=== PATIENT | female | born 1940 | race Caucasian/White ===

== ENCOUNTER 2017-12-23 15:16 | Emergency (ER) | payer MEDICARE ==
[2017-12-23 15:24] VITALS: BP 140/63
--- NOTE | 2017-12-23 15:58 | ER Document Report ---
ED Medical Screen (RME) - General Chief Complaint: Back Pain Stated Complaint: LOWER LEFT BACK PAIN Time Seen by Provider: 12/23/17 15:55 Mode of Arrival: Ambulatory Information source: Patient Notes: 77-year-old female presented to ED for complaint of left upper back pain that is getting progressively worse. She states she does have a cough and the cough makes the pain worse. She states today she started coughing up phlegm. She is tender to the upper back. She has a history of blood pressure stroke breast cancer with chemo and radiation bilaterally and bladder cancer. Lungs are clear to auscultation at this time. I have greeted and performed a rapid initial assessment of this patient. A comprehensive ED assessment and evaluation of the patient, analysis of test results and completion of medical decision making process will be conducted by an additional ED providers. TRAVEL OUTSIDE OF THE [place] IN LAST 30 DAYS: No - Related Data Allergies/Adverse Reactions: No Known Allergies Allergy (Verified 12/23/17 15:18) Past Medical History - Past Medical History Cardiac Medical History: Reports: Hx Hypertension Renal/ Medical History: Denies: Hx Peritoneal Dialysis Musculoskeltal Medical History: Reports Hx Arthritis Past Surgical History: Reports: Hx Breast Surgery - b/l lumpectomy cancer - Immunizations Hx Diphtheria, Pertussis, Tetanus Vaccination: No History of Influenza Vaccine for 07/2017 - 12/2017 Season: Yes Physical Exam - Vital signs Vitals: Temp Pulse Resp BP Pulse Ox 97.8 F 77 16 140/63 H 96 12/23/17 15:21 12/23/17 15:21 12/23/17 15:21 12/23/17 15:21 12/23/17 15:21 Course - Vital Signs Vital signs: Temp Pulse Resp BP Pulse Ox 97.8 F 77 16 140/63 H 96 12/23/17 15:21 12/23/17 15:21 12/23/17 15:21 12/23/17 15:21 12/23/17 15:21
[2017-12-23 16:46] LABS: APPEARANCE,URINE CLEAR; BILIRUBIN,URINE NEGATIVE (NEGATIVE); COLOR,URINE YELLOW; GLUCOSE, URINE NEGATIVE (NEGATIVE); KETONES,URINE NEGATIVE (NEGATIVE); LEUKOCYTE ESTERASE,URINE NEGATIVE (NEGATIVE); NITRITE,URINE NEGATIVE (NEGATIVE); PROTEIN,URINE NEGATIVE (NEGATIVE); URINE SPECIFIC GRAVITY 1.015; UROBILINOGEN,URINE NEGATIVE mg/dL (<2.0)
--- NOTE | 2017-12-23 16:50 | RADIOLOGY REPORT (SQ) ---
EXAM DESCRIPTION: CHEST PA/LAT COMPLETED DATE/TIME: 12/23/2017 4:35 pm REASON FOR STUDY: back pain left upper COMPARISON: None. EXAM PARAMETERS: NUMBER OF VIEWS: two views TECHNIQUE: Digital Frontal and Lateral radiographic views of the chest acquired. RADIATION DOSE: NA LIMITATIONS: none FINDINGS: LUNGS AND PLEURA: No opacities, masses or pneumothorax. No pleural effusion. MEDIASTINUM AND HILAR STRUCTURES: No hilar enlargement. Moderate size retrocardiac hiatal hernia. HEART AND VASCULAR STRUCTURES: Heart normal size. No evidence for failure. BONES: No acute findings. Bones are osteopenic. No thoracic compression deformity. HARDWARE: Surgical clips right lateral breast and axilla OTHER: No other significant finding. IMPRESSION: No acute infiltrates. Old prior right breast and axilla surgery. Moderate size retrocardiac hiatal hernia TECHNICAL DOCUMENTATION: JOB ID: [id number] [employer]- All Rights Reserved Reading location - IP/workstation name: [email or web address]
[2017-12-23 17:13] LABS: ABSOLUTE BASOPHILS # (AUTO) 0.1 10^3/uL (0.0-0.2); ABSOLUTE EOSINOPHILS # (AUTO) 0.6 10^3/uL (0.0-0.6); ABSOLUTE LYMPHOCYTES (AUTO) 1.9 10^3/uL (0.5-4.7); ABSOLUTE MONOCYTES (AUTO) 1.1 10^3/uL (0.1-1.4); ABSOLUTE NEUT (AUTO) 8.9 10^3/uL (1.7-8.2); EOSINOPHILS % (AUTO) 4.5 % (0-6); HEMATOCRIT 41.5 % (36.0-47.0); HEMOGLOBIN 13.8 g/dL (12.0-15.5); LYMPHOCYTES % (AUTO) 15.1 % (13-45); MEAN CORPUSCULAR HEMOGLOBIN 28.5 pg (27.0-33.4); MEAN CORPUSCULAR HGB CONC 33.2 g/dL (32.0-36.0); MEAN CORPUSCULAR VOLUME 86 fl (80-97); MONOCYTES % (AUTO) 9.1 % (3-13); PLATELET COUNT 376 10^3/uL (150-450); RED BLOOD COUNT 4.84 10^6/uL (3.72-5.28); RED CELL DISTRIBUTION WIDTH 14.8 % (11.5-14.0); SEGMENTED NEUTROPHILS % (AUTO) 70.3 % (42-78); TOTAL CELLS COUNTED % (AUTO) 100 %; WHITE BLOOD COUNT 12.6 10^3/uL (4.0-10.5)
[2017-12-23 17:34] LABS: ALANINE AMINOTRANSFERASE 34 U/L (9-52); ALBUMIN 4.6 g/dL (3.5-5.0); ALKALINE PHOSPHATASE 80 U/L (38-126); ANION GAP 11 (5-19); ASPARTATE AMINO TRANSFERASE 34 U/L (14-36); BILIRUBIN,DIRECT 0.4 mg/dL (0.0-0.4); BILIRUBIN,TOTAL 0.4 mg/dL (0.2-1.3); BLOOD UREA NITROGEN 19 mg/dL (7-20); CALCIUM 9.9 mg/dL (8.4-10.2); CARBON DIOXIDE 28 mmol/L (22-30); CHLORIDE 101 mmol/L (98-107); GLUCOSE 87 mg/dL (75-110); POTASSIUM 4.1 mmol/L (3.6-5.0); TOTAL PROTEIN 7.9 g/dL (6.3-8.2)
--- NOTE | 2017-12-23 18:17 | ER Document Report ---
ED Neck/Back Problem - General Mode of Arrival: Ambulatory Information source: Patient TRAVEL OUTSIDE OF THE [place] IN LAST 30 DAYS: No <TJ GIL - Last Filed: 12/23/17 18:26> <LANI TAYLOR - Last Filed: 12/23/17 23:19> - General Chief Complaint: Back Pain Stated Complaint: LOWER LEFT BACK PAIN Time Seen by Provider: 12/23/17 15:55 Notes: Patient is a 77-year-old female who presents to the emergency department today with complaints of a one-week duration of left-sided back pain. The pain is in her upper back and located near her shoulder blade. Patient denies any falls, trauma, or usage of blood thinners. (TJ GIL) - Related Data Allergies/Adverse Reactions: No Known Allergies Allergy (Verified 12/23/17 15:18) Past Medical History - General Information source: Patient - Social History Smoking Status: Former Smoker Cigarette use (# per day): No Frequency of alcohol use: None Drug Abuse: None Lives with: Family Family History: Reviewed & Not Pertinent Patient has suicidal ideation: No Patient has homicidal ideation: No - Past Medical History Cardiac Medical History: Reports: Hx Hypertension Renal/ Medical History: Denies: Hx Peritoneal Dialysis Musculoskeltal Medical History: Reports Hx Arthritis Past Surgical History: Reports: Hx Breast Surgery - b/l lumpectomy cancer - Immunizations Hx Diphtheria, Pertussis, Tetanus Vaccination: No <TJ GIL - Last Filed: 12/23/17 18:26> Review of Systems - Review of Systems Constitutional: No symptoms reported EENT: No symptoms reported Cardiovascular: No symptoms reported Respiratory: No symptoms reported Gastrointestinal: No symptoms reported Genitourinary: No symptoms reported Female Genitourinary: No symptoms reported Musculoskeletal: See HPI, Back pain Skin: No symptoms reported Hematologic/Lymphatic: No symptoms reported Neurological/Psychological: No symptoms reported -: Yes All other systems reviewed and negative <TJ GIL - Last Filed: 12/23/17 18:26> Physical Exam <TJ GIL - Last Filed: 12/23/17 18:26> <LANI TAYLOR - Last Filed: 12/23/17 23:19> - Vital signs Vitals: Temp Pulse Resp BP Pulse Ox 97.8 F 77 16 140/63 H 96 12/23/17 15:21 12/23/17 15:21 12/23/17 15:21 12/23/17 15:21 12/23/17 15:21 - Notes Notes: Physical Exam: General: Alert, appears well. HEENT: Normocephalic. Atraumatic. PERRL. Extraocular movements intact. Oropharynx clear. Neck: Supple. Non-tender. Respiratory: No respiratory distress. Clear and equal breath sounds bilaterally. Cardiovascular: 2/6 systolic murmur, Regular rate and rhythm. Abdominal: Normal Inspection. Non-tender. No distension. Normal Bowel Sounds. Back: Non-tender. No deformity or step off. Left sided parascapular tenderness with palpation. Extremities: Moves all four extremities. Upper extremities: Normal inspection. Normal ROM. Lower extremities: Normal inspection. No edema. Normal ROM. Neurological: Normal cognition. AAOx4. Normal speech. Psychological: Normal affect. Normal Mood. Skin: Warm. Dry. Normal color. No rashes. (TJ GIL) Course - Laboratory Result Diagrams: 12/23/17 16:26 12/23/17 16:26 <TJ GIL - Last Filed: 12/23/17 18:26> - Laboratory Result Diagrams: 12/23/17 16:26 12/23/17 16:26 <LANI TAYLOR - Last Filed: 12/23/17 23:19> - Re-evaluation Re-evalutation: 12/23/17 18:58 Patient has point tenderness to palpation along the border of left scapula suggestive muscular pain. The pain is reproducible with palpation. Her x-ray shows a hiatal hernia otherwise no other concerning findings. Her labs are within normal limits are nonsignificant. Will provide muscle relaxers instructed to use heating pad and stretching exercises. Discussed if symptoms were to continue she may consider at [facility] unit or PT. community clinic referral provide. Return precautions provided. (LANI TAYLOR) - Vital Signs Vital signs: Temp Pulse Resp BP Pulse Ox 97.8 F 77 16 140/63 H 96 12/23/17 15:21 12/23/17 15:21 12/23/17 15:21 12/23/17 15:21 12/23/17 15:21 - Laboratory Laboratory results interpreted by me: 12/23/17 16:26 WBC 12.6 H RDW 14.8 H Absolute Neutrophils 8.9 H Discharge <TJ GIL - Last Filed: 12/23/17 18:26> <LANI TAYLOR - Last Filed: 12/23/17 23:19> - Discharge Clinical Impression: Muscle strain Disposition: HOME, SELF-CARE Instructions: Muscle Strain ([facility]), Warm Packs ([facility]) Additional Instructions: Per discussion, please stretch using heating pad and ibuprofen as needed for pain. I feel he would benefit from a TENS unit as well which can be purchased at any drugstore. If symptoms continue you may be a candidate for physical therapy. If you begin to experience any chest pain or worsening of symptoms that radiate down your arm those could be signs of other diseases and you should be reevaluated by medical professional. Scribe Attestation: 12/23/17 23:19 I personally performed the services described documentation, reviewed and edited the documentation which was dictated to describe my presence, and it accurately records my words and actions. (LANI TAYLOR) Scribe Documentation - Scribe Written by Ivan:: Ivan Caldera, 12/23/2017 1831 acting as scribe for :: Liang <TJ GIL - Last Filed: 12/23/17 18:26>
== END 2017-12-23 19:10 | disposition home or self-care (01) ==
LOC: ER 15:16
DX: S39.012A Strain of muscle, fascia and tendon of lower back, initial encounter (principal); X58.XXXA Exposure to other specified factors, initial encounter; I10 Essential (primary) hypertension
CPT/HCPCS: 36415; 71046; 80053; 81001; 85025; 99283

== ENCOUNTER → 2018-03-17 | Outpatient (CLI) | payer MEDICARE ==
[2018-03-17 08:00] LABS: HEMATOCRIT 41.5 % (36.0-47.0); MEAN CORPUSCULAR HEMOGLOBIN 28.6 pg (27.0-33.4); MEAN CORPUSCULAR HGB CONC 33.6 g/dL (32.0-36.0); MEAN CORPUSCULAR VOLUME 85 fl (80-97); PLATELET COUNT 307 10^3/uL (150-450); RED BLOOD COUNT 4.88 10^6/uL (3.72-5.28); RED CELL DISTRIBUTION WIDTH 15.1 % (11.5-14.0); WHITE BLOOD COUNT 7.8 10^3/uL (4.0-10.5)
[2018-03-17 08:25] LABS: ALANINE AMINOTRANSFERASE 29 U/L (9-52); ALBUMIN 4.2 g/dL (3.5-5.0); ALKALINE PHOSPHATASE 61 U/L (38-126); ANION GAP 14 (5-19); ASPARTATE AMINO TRANSFERASE 39 U/L (14-36); BILIRUBIN,DIRECT 0.3 mg/dL (0.0-0.4); BILIRUBIN,TOTAL 0.5 mg/dL (0.2-1.3); BLOOD UREA NITROGEN 20 mg/dL (7-20); CALCIUM 9.8 mg/dL (8.4-10.2); CARBON DIOXIDE 28 mmol/L (22-30); CHLORIDE 105 mmol/L (98-107); CHOLESTEROL 164.69 mg/dL (0-200); GLUCOSE 103 mg/dL (75-110); POTASSIUM 4.3 mmol/L (3.6-5.0); SODIUM 147.2 mmol/L (137-145); TOTAL PROTEIN 7.4 g/dL (6.3-8.2); TRIGLYCERIDES 85 mg/dL (<150)
[2018-03-17 08:36] LABS: DIRECT LDL 92 mg/dL (<100)
== END ==
LOC: OD 07:15
PROVIDERS: ATTEND Nurse Practitioner
DX: E78.5 Hyperlipidemia, unspecified (principal); I10 Essential (primary) hypertension; Z79.899 Other long term (current) drug therapy; M85.89 Other specified disorders of bone density and structure, multiple sites
CPT/HCPCS: 36415; 80053; 80061; 82306; 82607; 83036; 84443; 85027

== ENCOUNTER → 2018-03-18 | Outpatient (CLI) | payer MEDICARE ==
--- NOTE | 2018-03-18 13:40 | RADIOLOGY REPORT (SQ) ---
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 TECHNIQUE: Grayscale ultrasound, Doppler velocity and spectra, and color Doppler images acquired of the extra-cranial carotid and vertebral arteries. Images stored on PACS. LIMITATIONS: None. FINDINGS: RIGHT CAROTID CCA Velocities: Within normal limits. ICA Velocities Peak systolic 1.36 m/s. End diastolic 0.35 m/s. Proximal ICA/CCA peak systolic ratio 1.4. Systolic velocity would suggest a 50 to 69% stenosis. CC ratio would suggest a lesser stenosis. LEFT CAROTID CCA Velocities: Within normal limits. ICA Velocities Peak systolic 0.97 m/s. End diastolic 0.22 m/s. Proximal ICA/CCA peak systolic ratio 1.2. Spectra normal. No significant plaque. VERTEBRAL ARTERIES: Antegrade flow. Normal waveforms. SUBCLAVIAN ARTERIES: No finding. OTHER: No other significant finding. IMPRESSION: Systolic flow velocity in the right internal carotid artery would suggest a 50 [address]% [address] enosis although the CC ratio would suggest a lesser stenosis. No other hemodynamically significant s tenoses are identified COMMENT: Quality ID #[id number]: Velocity criteria are extrapolated from the diameter data as defined by t he Society of Radiologists in Ultrasound Consensus Conference. Radiology 2003: 229; 340-346. TECHNICAL DOCUMENTATION: JOB ID: [id number] [employer]- All Rights Reserved Reading location - IP/workstation name: [email or web address]
--- NOTE | 2018-03-18 15:14 | WOMENS IMAGING REPORT ---
EXAM DESCRIPTION: BONE DENSITY HIP/SPINE COMPLETED DATE/TIME: 03/18/2018 2:21 pm REASON FOR STUDY: M85.89 OSTEOPENIA OF MANY SITES I63.10 CEREBRAL INFARCTION DUE TO EMBOLISM OF UNS P PRECERB A E78.5 HYPERLIPIDEMIA, UNSPECIFIED M85.89 OTH DISRD OF BONE DENSITY AND STRUCTURE, MULTI PLE SIT COMPARISON: None. TECHNIQUE: Dual-Energy X-ray Absorptiometry (DEXA) of the AP Spine and Hip. LIMITATIONS: None. FINDINGS: LUMBAR SPINE: The bone mineral density (BMD) measured from L1-L4 in the AP projection correlates with a T-score of -1.0, which is osteopenic as defined by the World Health Organization. HIP: The bone mineral density (BMD) measured in the left femoral neck at the hip correlates with a T-score of -1.7, which is osteopenic as defined by the World Health Organization. IMPRESSION: 1. LUMBAR SPINE: Osteopenic 2. HIP: Osteopenic COMMENT: The World Health Organization defines low BMD as follows: T-score: Normal: Greater than -1.0 Osteopenia: Between -1.0 and -2.5 Osteoporosis: Less than -2.5 without fractures Established osteoporosis: Less than -2.5 with fractures In general, you may wish to consider: Diagnosis Treatment Follow-up DEXA Normal BMD Prevention 2-3 years Osteopenia Prevention/Therapy 1-2 years Osteoporosis Therapy Yearly TECHNICAL DOCUMENTATION: JOB ID: [id number] [employer]- All Rights Reserved Reading location - IP/workstation name: [email or web address]
== END ==
LOC: SP 12:30
PROVIDERS: ATTEND Nurse Practitioner
DX: M85.89 Other specified disorders of bone density and structure, multiple sites (principal)
CPT/HCPCS: 77080; 93880

== ENCOUNTER → 2018-05-27 | Outpatient (CLI) | payer MEDICARE ==
--- NOTE | 2018-05-28 08:54 | RADIOLOGY REPORT (SQ) ---
EXAM DESCRIPTION: CT CHEST WITH COMPLETED DATE/TIME: 05/27/2018 10:20 am REASON FOR STUDY: LUNG NODULE (R91.1) R91.1 SOLITARY PULMONARY NODULE Z12.31 ENCNTR SCREEN MAMMOGR AM FOR MALIGNANT NEOPLASM OF YOBANI COMPARISON: None. TECHNIQUE: CT scan of the chest performed using helical scanning technique with dynamic intravenous contrast injection. Images reviewed with lung, soft tissue and bone windows. Reconstructed coronal and sagittal MPR images reviewed. All images stored on PACS. All CT scanners at this facility use dose modulation, iterative reconstruction, and/or weight based d osing when appropriate to reduce radiation dose to as low as reasonably achievable (ALARA). [facility]: Dose Right [facility]: CareDose [facility]: Dose Right [facility]: Teradose 4D [facility]: RFMicron CONTRAST TYPE AND DOSE: contrast/concentration: Isovue 370.00 mg/ml; Total Contrast Delivered: 80.0 ml; Total Saline Delivered: 43.0 ml RENAL FUNCTION: Creatinine 0.7. RADIATION DOSE: CT Rad equipment meets quality standard of care and radiation dose reduction techniq ues were employed. CTDIvol: 3.3 mGy. DLP: 116 mGy-cm. . LIMITATIONS: None. FINDINGS: LUNGS AND PLEURA: Chronic parenchymal scarring. Mild bronchiectasis in the lower lobes. Previously described pulmonary nodule is no longer present. Currently no pulmonary nodules or masses . No pneumothorax. No effusions. HILAR AND MEDIASTINAL STRUCTURES: No identified masses or abnormal nodes. HEART AND VASCULAR STRUCTURES: Atherosclerosis. Small saccular aneurysm at the aortic arch. No cent ral pulmonary emboli. No pericardial effusion. HARDWARE: Axillary surgical clips. UPPER ABDOMEN: No significant findings. Limited exam. THYROID AND OTHER SOFT TISSUES: No masses. No adenopathy. BONES: No significant finding. OTHER: Hiatal hernia. No other significant finding. IMPRESSION: 1. CHRONIC CHANGES IN THE LUNGS WITH PARENCHYMAL SCARRING AND MILD BRONCHIECTASIS. NO PULMONARY NODU LES OR MASSES. THE PULMONARY NODULE DESCRIBED ON PRIOR CHEST CT REPORTS IS NOT PRESENT ON THE CURREN T STUDY. 2. 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 BASED ON THE PRIOR REPORTS, THIS IS PROBABLY U NCHANGED. 3. HIATAL HERNIA. 4. NO OTHER SIGNIFICANT FINDINGS. TECHNICAL DOCUMENTATION: JOB ID: [id number] Quality ID # [id number]: Final reports with documentation of one or more dose reduction techniques (e.g., Au tomated exposure control, adjustment of the mA and/or kV according to patient size, use of iterative reconstruction technique) 2010 [employer]- All Rights Reserved Reading location - IP/workstation name: [email or web address]
== END ==
LOC: RAD 09:38
PROVIDERS: ATTEND Internal Medicine Medical Oncology
DX: Z12.31 Encounter for screening mammogram for malignant neoplasm of breast (principal); R91.1 Solitary pulmonary nodule
CPT/HCPCS: 71260; 77063; 77067; 82565